=== PATIENT | female | born 1995 | race Caucasian/White ===

== ENCOUNTER 2019-01-02 17:31 | Emergency (ER) | payer OTHER ==
[2019-01-02] MEDS: LIDOCAINE/MYLANTA 40 ML BTL PO (19:18)
[2019-01-02] MEDS: RANITIDINE 150 MG TAB PO (19:18)
== END 2019-01-02 20:18 | disposition home or self-care (01) ==
LOC: FTE 17:31
DX: R07.89 Other chest pain (principal); R10.13 Epigastric pain
CPT/HCPCS: 71045; 93005; 99284-25